=== PATIENT | male | born 2000 | race Caucasian/White ===

== ENCOUNTER 2020-11-24 15:35 | Emergency (ER) | payer OTHER ==
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
--- NOTE | 2020-11-24 16:36 | XRAY ---
Indication: Pain following fall. Fracture. Comparison: None 3 view left hand demonstrates normal bones, articulation, and soft tissues.
[2020-11-24] MEDS ORDERED: MOTRIN 600 MG PO ONE (17:55)
[2020-11-24] MEDS ORDERED: NORCO 5/325 MG PO ONE (17:55)
[2020-11-24] MEDS ORDERED: NORCO 5/325 MG ONE (18:01)
[2020-11-24] MEDS ORDERED: MOTRIN 600 MG ONE (18:01)
[2020-11-24 18:06] VITALS: BP 133/80; PULSE 81; O2SAT 99
== END 2020-11-24 18:16 | disposition home or self-care (01) ==
LOC: ED 15:35
DX: T23.152A Burn of first degree of left palm, initial encounter (principal); T31.0 Burns involving less than 10% of body surface; X19.XXXA Contact with other heat and hot substances, initial encounter; Y93.H3 Activity, building and construction; Y92.69 Other specified industrial and construction area as the place of occurrence of the external cause; Y99.0 Civilian activity done for income or pay
CPT/HCPCS: 73130; 99283; A9270-GY